=== PATIENT | female | born 1990 | race Caucasian/White ===

== ENCOUNTER 2024-11-25 04:43 | Emergency (ER) | payer MEDICAID, SELFPAY ==
[2024-11-25 04:45] VITALS: BMI 19.5
--- NOTE | 2024-11-25 04:52 | XR_ITS ---
Examination: Toes, left foot fifth digit Technique: Toes AP oblique lateral 3 views left foot fifth digit Date and time of exam: November 25, 2024, 0749 hours INDICATIONS: Injury to the foot last week with fifth digit pain. FINDINGS: Acute fractures nondisplaced base proximal phalanx fifth digit IMPRESSION: Acute nondisplaced fractures proximal phalanx fifth digit
[2024-11-25 05:17] VITALS: BP 110/67; PULSE 68; RESP 16; TEMP 37; O2SAT 95
--- NOTE | 2024-11-25 06:15 | PD.EDADULT ---
ED General RME/HPI General Chief complaint: Ankle/Foot Injury Stated complaint: L PINKY TOE INJURY Time Seen by Provider: 11/25/24 06:05 Arrival date/time: 11/25/24 04:43 CC: Left foot pain HPI onset a week ago after striking the toes against the corner of the house. Patient states localized pain 2-3 on a 10 scale, no numbness or tingling in the toes. No other complaints at this time no OTC medicine taken in the last 12 hours. Related Data Allergies Allergy/AdvReac Type Severity Reaction Status Date / Time No Known Allergies Allergy Verified 11/25/24 04:51 Review of Systems Review of Systems Narrative Review of Systems: GEN: No fever, no chills, no weight loss EYES: No discharge, no visual changes, no pain HEENT: No ear pain, no congestion, no sore throat PULM: No shortness of breath, no cough, no congestion CV: No chest pain, no dyspnea on exertion, no palpitations GI: No nausea, no vomiting, no diarrhea, no pain, no constipation : No frequency, no urgency, no dysuria MUSC/SKEL: + joint pain, no back pain SKIN: No rash PSYCH: No hallucinations, no depression HEME/LYMPH: No easy bleeding or bruising tendencies NEURO: No weakness, no headache Past Medical History Social History SMOKING STATUS: Never smoker ED Exam Narrative Physical exam: [General: Not in any acute distress Head normocephalic HEENT: Within acceptable limits Neck is supple nontender Chest equal chest rise nontender to palpation Respiratory: Clear to auscultation no wheezes crackles or rubs CV: Rate rhythm is regular no murmurs rubs or clicks Abdomen is distended secondary to body habitus soft nontender no masses positive bowel sounds all 4 quadrants Back: No CVA tenderness no spinous process tenderness from cervical spine thoracic and lumbar spine Skin: Intact no petechiae rash induration ulceration or crepitus Extremities: Left foot: Toes: Patient has full range of motion of the toes there is ecchymosis at the base of the 2nd, 3rd and 4th toe and the dorsum of the foot that is in very stages resolution. Cap refill in all the toes less than 2 seconds neurosensory intact. Moving all other extremities against resistance cap refill less than 2 seconds neurosensory intact Neuro: Awake alert oriented x3 Glascow coma 15 no focal deficits] Course Quality Measures none Orders Category Date Time Status XR toe LT min 2V Stat Exams 11/25/24 04:52 Taken Vital Signs Vital signs: Vital Signs Temperature 98.6 F 11/25/24 05:17 Pulse Rate 68 11/25/24 05:17 Respiratory Rate 16 11/25/24 05:17 Blood Pressure 110/67 11/25/24 05:17 Pulse Oximetry (%) 95 11/25/24 05:17 Oxygen Delivery Method Room Air 11/25/24 05:17 Discharge Plan Plan Patient Disposition: HOME (Self Care) Patient condition on transfer: Stable Prescriptions/Referrals Referrals: Darrion Bonilla MD [Physician] - In 1 week Problem List Clinical Impression: Contusion of toe Patient/Caregiver Discharge Instructions Education Materials: ED Soft Tissue Contusion, ED Contusion, Lower Extremity Additional Instructions: Keep the toes elissa tape for the next week or so. Wear covered shoes. Ibuprofen or Tylenol for pain. If there is a worsening of symptoms follow-up with your primary care provider. Print Language: Portuguese Stand Alone Forms: [employer] Award Info., Work/School Release, Patient Portal Info Letter PA/TRIPPER Supervising Physician PA/TRIPPER Supervising Physician: Ambrosio Garay ENP, MD Attestation MD Attestation The patient was seen by the midlevel practitioner. I, the co-signing physician, was present during the entire ER visit. While I did not physically examine the patient, I was available for consultation as needed. I agree with the plan and documentation. MDM Clinical Information Provided by patient Medical Records Reviewed [facility] Meds/Rx Considered, not Ordered None Labs/Rad/Tests considered, not Ordered None Chronic Illness/Social Conditions which may negatively complicate care or outcome(s)-explain: None or not applicable EKG EKG not done Lab Interpretation Labs: none Imaging Provider imaging interpretation(s): Image of the fifth toe as interpreted by me shows no acute fracture malalignment or dislocation. Medication Administration(s) none Dispositon Disposition: Discharge Home
== END 2024-11-25 06:36 | disposition home or self-care (01) ==
LOC: SERX 06:27
PROVIDERS: Emergency Provider Family Medicine
DX: S90.122A Contusion of left lesser toe(s) without damage to nail, initial encounter (principal); W22.09XA Striking against other stationary object, initial encounter; Y92.009 Unspecified place in unspecified non-institutional (private) residence as the place of occurrence of the external cause
CPT/HCPCS: 73660; 99283